=== PATIENT | male | born 1970 | race Caucasian/White ===

== ENCOUNTER 2016-08-12 14:40 | Inpatient (IN) | payer MEDICARE, MEDICAID ==
[2016-08-12 14:46] VITALS: O2SAT 98
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
[2016-08-12] MEDS: Divalproex 500 mg DR Tab PO SCH (21:13)
[2016-08-13] MEDS: Divalproex 500 mg DR Tab PO SCH ×2 (11:13→18:32)
[2016-08-13] MEDS: Metoprolol Succinate 25 mg XL Tab PO SCH (12:01)
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
[2016-08-14] MEDS: Divalproex 500 mg DR Tab PO SCH ×2 (10:09→17:28)
[2016-08-14] MEDS: Metoprolol Succinate 25 mg XL Tab PO SCH (10:10)
--- NOTE | 2016-08-14 11:22 | PCM.PYCHPN ---
Psychiatric Progress Note - Psychiatric Progress Note Patient seen today, length of contact: 17 min Patient Chief Complaint: I'm okay Problems Identified/Issues Discussed: Patient seen and evaluated, chart reviewed and discussed with the nurse. Patient appeared disorganized and internally preoccupied. Patient reports improvement in anxiety but he continued to pace back and forth in the hallways. Patient still appears paranoid and delusional. He is taking medication and denies any side effects. Supportive therapy and psychoeducation were given. Medication Change: No Medical Record Reviewed: Yes Mental Status Examination - Cognitive Function Orientation: Person, Place, Situation, Time Memory: Intact Attention: Poor Concentration: Poor Association: Loose Fund of Knowledge: Poor - Mood Mood: Anxious - Affect Affect: Constricted (odd) - Speech Speech: Soft - Formal Thought Process Formal Thought Process: Delusions, Paranoia, Loosening of associations - Suicidal Ideation Suicidal Ideation: No - Homicidal Ideation Homicidal Ideation: No Goal/Treatment Plan - Goal/Treatment Plan Need for Continued Stay: Discharge may exacerbated symptoms, Severe functional impairment Progress Toward Problem(s) and Goals/Treatment Plan: Schizoaffective d/o - unspecified Zyprexa 10 mg by mouth daily at bedtime Depakote 500 mg by mouth twice a day trazodone 100 mg by mouth daily at bedtime Supprt and psychoed Contact ADC Attend groups - Smoking Cessation Smoking Cessation Initiated: No
[2016-08-15] MEDS: Divalproex 500 mg DR Tab PO SCH ×2 (10:10→17:10)
[2016-08-15] MEDS: Metoprolol Succinate 25 mg XL Tab PO SCH (10:11)
--- NOTE | 2016-08-15 16:13 | PCM.PYCHPN ---
Psychiatric Progress Note - Psychiatric Progress Note Patient seen today, length of contact: 17 min Patient Chief Complaint: I'm doing great Problems Identified/Issues Discussed: Patient seen and evaluated, chart reviewed and discussed with the nurse. As per the staff, patient remained disheveled and unkempt. he appeared delusional and paranoid. Although he remained calm and cooperative but he remained disorganized and internally preoccupied. He is taking medication and denies any side effects. Supportive therapy and psychoeducation were given. Medication Change: No Medical Record Reviewed: Yes Mental Status Examination - Cognitive Function Orientation: Person, Place, Situation, Time Memory: Intact Attention: Poor Concentration: Poor Association: Loose Fund of Knowledge: Poor - Mood Mood: Anxious - Affect Affect: Constricted (odd) - Speech Speech: Soft - Formal Thought Process Formal Thought Process: Delusions, Paranoia, Loosening of associations - Suicidal Ideation Suicidal Ideation: No - Homicidal Ideation Homicidal Ideation: No Goal/Treatment Plan - Goal/Treatment Plan Need for Continued Stay: Discharge may exacerbated symptoms, Severe functional impairment Progress Toward Problem(s) and Goals/Treatment Plan: Schizoaffective d/o - unspecified Zyprexa 10 mg by mouth daily at bedtime Depakote 500 mg by mouth twice a day trazodone 100 mg by mouth daily at bedtime Supprt and psychoed Contact ADC Attend groups - Smoking Cessation Smoking Cessation Initiated: No
[2016-08-16] MEDS: Divalproex 500 mg DR Tab PO SCH ×2 (09:00→17:18)
[2016-08-16] MEDS: Metoprolol Succinate 25 mg XL Tab PO SCH (09:01)
--- NOTE | 2016-08-17 00:51 | PCM.PYCHPN ---
Psychiatric Progress Note - Psychiatric Progress Note Patient seen today, length of contact: 16 min Patient Chief Complaint: "I am better" Problems Identified/Issues Discussed: The pt is seen, chart reviewed, case discussed with staff. The pt is compliant with medications and reports no side-effects. Symptoms are improving but needs more time to stabilize. After care discussed, support and psychoeducation given. CBT used briefly. Medication Change: No Medical Record Reviewed: Yes Mental Status Examination - Cognitive Function Orientation: Person, Place, Situation, Time Memory: Intact Attention: Poor Concentration: Poor Association: Loose Fund of Knowledge: Poor - Mood Mood: Anxious - Affect Affect: Constricted (odd) - Speech Speech: Soft - Formal Thought Process Formal Thought Process: Delusions, Paranoia, Loosening of associations - Suicidal Ideation Suicidal Ideation: No - Homicidal Ideation Homicidal Ideation: No Goal/Treatment Plan - Goal/Treatment Plan Need for Continued Stay: Discharge may exacerbated symptoms, Severe functional impairment Progress Toward Problem(s) and Goals/Treatment Plan: Resume zyprexa and depakote Support and psychoed Contact MARSHALL ramos Attend groups
[2016-08-17 07:42] LABS: BASO # 0.1 K/uL (0.0-0.2); BASO % 1.1 % (0.0-2.0); EOS # 0.3 K/uL (0.0-0.7); EOS % 5.1 % (0.0-4.0); HEMATOCRIT 38.4 % (35.0-51.0); LYMPH # 1.9 K/uL (1.0-4.3); LYMPH % 33.9 % (20.0-40.0); MEAN CELL VOLUME 102.3 fL (80.0-94.0); MEAN CORPUSCULAR HEMOGLOBIN 34.5 pg (27.0-31.0); MEAN CORPUSCULAR HGB CONC 33.7 g/dL (33.0-37.0); MEAN PLATELET VOLUME 7.8 fL (7.2-11.7); MONO # 0.7 K/uL (0.0-0.8); MONO % 12.8 % (0.0-10.0); RED CELL DISTRIBUTION WIDTH 12.4 % (11.5-14.5); WHITE BLOOD COUNT 5.5 K/uL (4.8-10.8)
[2016-08-17 07:50] LABS: CHLORIDE 100 mmol/L (98-107); POTASSIUM 4.3 mmol/L (3.6-5.2); SODIUM 138 mmol/L (132-148)
[2016-08-17 07:52] LABS: BILIRUBIN,TOTAL 0.7 mg/dL (0.2-1.3); CARBON DIOXIDE 27 mmol/L (22-30); GFR AFRICAN-AMERICAN > 60
[2016-08-17 07:53] LABS: ALB/GLOB RATIO 1.4 (1.0-2.1); ALKALINE PHOSPHATASE 38 U/L (38-126); ALT/SGPT 104 U/L (21-72); AST/SGOT 85 U/L (17-59); BLOOD UREA NITROGEN 7 mg/dL (9-20); CALCIUM 8.7 mg/dl (8.6-10.4); GLUCOSE,RANDOM 97 mg/dL (75-110); TOTAL PROTEIN 6.1 g/dL (6.3-8.3)
[2016-08-17] MEDS: Divalproex 500 mg DR Tab PO SCH ×2 (10:48→18:25)
[2016-08-17] MEDS: Metoprolol Succinate 25 mg XL Tab PO SCH (10:48)
--- NOTE | 2016-08-17 12:56 | PCM.PYCHPN ---
Psychiatric Progress Note - Psychiatric Progress Note Patient seen today, length of contact: 17 min Patient Chief Complaint: "I am tired" Problems Identified/Issues Discussed: The pt is seen, chart reviewed, case discussed with staff. The pt is compliant with medications and reports no side-effects. Symptoms are still improving but needs more time to stabilize. Likely to be dc' ed tomorrow After care discussed, support and psychoeducation given. Will go to [facility] and his adult day care. SW spoke to them Medication Change: No Medical Record Reviewed: Yes Mental Status Examination - Cognitive Function Orientation: Person, Place, Situation, Time Memory: Intact Attention: Poor Concentration: Poor Association: Loose Fund of Knowledge: Poor - Mood Mood: Anxious - Affect Affect: Constricted (odd) - Speech Speech: Soft - Formal Thought Process Formal Thought Process: Delusions, Paranoia, Loosening of associations - Suicidal Ideation Suicidal Ideation: No - Homicidal Ideation Homicidal Ideation: No Goal/Treatment Plan - Goal/Treatment Plan Need for Continued Stay: Discharge may exacerbated symptoms, Severe functional impairment Progress Toward Problem(s) and Goals/Treatment Plan: zyprexa and depakote Support and psychoed Contact MARSHALL ramos Attend groups Estimated Date of D/C: 08/18/16
[2016-08-18 06:54] VITALS: BP 128/85; PULSE 74; RESP 19; TEMP 97.7
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
[2016-08-18] MEDS ORDERED: Divalproex 500 mg DR Tab PO SCH (10:30)
[2016-08-18] MEDS: Metoprolol Succinate 25 mg XL Tab PO SCH (11:11)
[2016-08-18] MEDS: Divalproex 500 mg DR Tab PO SCH (11:14)
[2016-08-18] MEDS ORDERED: Divalproex 125 mg DR Tab PO SCH (18:00)
== END 2016-08-18 11:30 | disposition home or self-care (01) | DRG 885 ==
LOC: C.ER 14:40 → C.5E 14:54
PROVIDERS: ADMIT Psychiatry & Neurology Psychiatry; ATTEND Psychiatry & Neurology Psychiatry
DX: F25.9 Schizoaffective disorder, unspecified (principal); E11.9 Type 2 diabetes mellitus without complications; I10 Essential (primary) hypertension; F31.9 Bipolar disorder, unspecified; F41.9 Anxiety disorder, unspecified; F17.210 Nicotine dependence, cigarettes, uncomplicated; F10.120 Alcohol abuse with intoxication, uncomplicated